=== PATIENT | female | born 1995 | race Caucasian/White ===

== ENCOUNTER 2017-05-30 02:21 | Emergency (ER) | payer OTHER ==
[~2017-05-30] VITALS: Ht 160 cm; Wt 52.3 kg
[2017-05-30 02:38] LABS: HEMATOCRIT 35.2 % (36.0-46.0); HEMOGLOBIN 11.9 G/DL (11.9-15.5); MCH 30.6 PG (29.0-34.0); MCHC 33.8 G/DL (30.0-36.0); MCV 90.5 FL (83-99); PLATELET COUNT 405 K/uL (156-360); RBC DIS.WIDTH-CV 12.6 % (11.8-14.6); RBC DIS.WIDTH-SD 41.6 % (39-53); RED BLOOD COUNT 3.89 M/uL (3.80-5.20); WHITE BLOOD COUNT 11.2 K/uL (4.1-10.2)
[2017-05-30 02:46] LABS: CHLORIDE 105 mEq/L (99-109); SODIUM 135 mEq/L (136-147)
[2017-05-30 02:48] LABS: GLUCOSE 88 mg/dL (70-99)
[2017-05-30 02:52] LABS: CREATININE 0.8 mg/dL (0.6-1.3)
[2017-05-30 02:53] LABS: UREA NITROGEN (BUN) 15 mg/dL (9-23)
[2017-05-30 02:58] LABS: APPEARANCE CLOUDY ((CLEAR)); BILIRUBIN NEGATIVE; BLOOD LARGE; COLOR AMBER ((YELLOW)); GLUCOSE (STRIP) NEGATIVE; KETONES NEGATIVE; LEUKOCYTES MODERATE; NITRITE POSITIVE; PROTEIN (STRIP) 100; SPECIFIC GRAVITY 1.025 (1.000-1.030)
[2017-05-30 03:00] LABS: QUANTITATIVE HCG < 4.0 MIU/ML
[2017-05-30 03:04] LABS: GFR ESTIMATE (CALCULATED) > 59 mL/min/
[2017-05-30 03:08] LABS: RED BLOOD CELLS TNTC /HPF (0-5); UCUL ADDED? YES
[2017-05-30] MEDS ORDERED: PYRIDIUM200 MG PO (05:21)
[2017-05-30] MEDS ORDERED: CIPRO500 MG PO (05:21)
[2017-05-30 06:02] VITALS: BP 97/63
== END 2017-05-30 06:04 | disposition home or self-care (01) ==
LOC: EME 02:21
DX: N39.0 Urinary tract infection, site not specified (principal)
CPT/HCPCS: 74176; 80048; 81003; 84702; 85027; 87077; 87086; 87186; 99281; 99284